=== PATIENT | male | born 1970 | race Caucasian/White ===

== ENCOUNTER → 2017-10-01 | Outpatient (REF) | payer OTHER, MEDICAID ==
[~2017-10-01] MED LIST: /CIPR75TA OR; ALLE25CA; ASP325 PO; CELEBRE200 PO; CORE6.25 OR; EFFE150C; EFFE75CA75 OR; EFFEXOR PO; EFFEXORXL1 PO; EFFEXORXL7 PO; LOPRESSO25 PO; NITR0.4S; NITROSTAT4 SL; OXYB5TAB4 OR; PLAV75TA2 OR; PLAVIX75 PO; PREDTAP PO; PRIN10TA OR; TOPI50TA; TRIC145T19 OR; XANAX PO; ZANTAC300 PO; ZOCO20TA OR; ZOCOR20 PO; ZYRTEC10 PO; [UNRECOGNIZED DRUG - CODE] PO
[2017-10-01 12:07] LABS: MEAN CORPUSCULAR HEMOGLOBIN 29.6 pg (27.0-33.0); MEAN CORPUSCULAR HGB CONC 34.8 g/dl (32.0-36.5); MEAN CORPUSCULAR VOLUME 85.3 fl (80.0-96.0); PLATELET COUNT, AUTOMATED 279 10^3/uL (150-450); RED CELL DISTRIBUTION WIDTH 12.2 % (11.5-14.5); WHITE BLOOD COUNT 5.8 10^3/uL (4.0-10.0)
[2017-10-01 13:07] LABS: FREE T4 1.07 NG/DL (0.76-1.46); URIC ACID 4.4 MG/DL (3.5-7.2)
[2017-10-03 07:21] LABS: ERYTHROCYTE SEDIMENTATION RATE 1 mm/hr (0-15)
[2017-10-04 00:08] LABS: Lyme Disease IgG/IgM Antibodie <0.91 ISR (0.00-0.90); Lyme Disease IgM Ab Quantitati <0.80 index (0.00-0.79)
== END ==
LOC: M SFHCCLAY 09:40
PROVIDERS: ATTEND Family Medicine
DX: M25.50 Pain in unspecified joint (principal)

== ENCOUNTER 2018-07-01 17:10 | Emergency (ER) | payer OTHER, MEDICAID ==
[2018-07-01 18:34] LABS: CPK CREATINE PHOSPHOKINASE 113 U/L (39-308)
== END 2018-07-01 19:14 | disposition home or self-care (01) ==
LOC: M ED 17:10
DX: T75.4XXA Electrocution, initial encounter (principal); R07.9 Chest pain, unspecified; G89.29 Other chronic pain; W86.8XXA Exposure to other electric current, initial encounter; Y92.095 Swimming-pool of other non-institutional residence as the place of occurrence of the external cause; I11.9 Hypertensive heart disease without heart failure; I25.2 Old myocardial infarction; I25.10 Atherosclerotic heart disease of native coronary artery without angina pectoris; E78.5 Hyperlipidemia, unspecified; E66.9 Obesity, unspecified; Z88.8 Allergy status to other drugs, medicaments and biological substances; Z88.6 Allergy status to analgesic agent; Z88.5 Allergy status to narcotic agent; Z88.0 Allergy status to penicillin; Z88.2 Allergy status to sulfonamides; Z79.899 Other long term (current) drug therapy
CPT/HCPCS: 93005

== ENCOUNTER 2019-04-06 15:14 | Day surgery (SDC) | payer OTHER ==
[~2019-04-06] VITALS: Ht 180.3 cm; Wt 139.9 kg
[~2019-04-06 15:14] MED LIST changes: +ATOR80TA59 PO; +NITR0.4S14 PO
[2019-04-06] MEDS ORDERED: LISI40TA PO (15:34)
[2019-04-06] MEDS ORDERED: DULO1CAP2 PO (15:34)
[2019-04-06] MEDS ORDERED: NS 1,000 ML IV ONE (16:00)
[2019-04-06] MEDS ORDERED: MORPHINE 4 MG/ML 1ML VIAL/SYRINGE (J2270) IV ONE (16:00)
[2019-04-06] MEDS ORDERED: ONDANSETRON 4MG/2ML VIAL (J2405) IV ONE (16:00)
[2019-04-06 16:10] LABS: BASO # 0.1 10^3/uL (0.0-0.2); BASO % 1.2 % (0.0-1.0); EOS # 0.1 10^3/uL (0.0-0.50); EOS % 1.2 % (0.0-3.0); HEMATOCRIT 45.1 % (42.0-52.0); HEMOGLOBIN 16.2 g/dl (13.5-17.5); LYMPH % 26.3 % (24.0-44.0); MEAN CORPUSCULAR HEMOGLOBIN 30.9 pg (27.0-33.0); MEAN CORPUSCULAR HGB CONC 35.9 g/dl (32.0-36.5); MEAN CORPUSCULAR VOLUME 86.1 fl (80.0-96.0); MONO # 0.9 10^3/uL (0.0-0.8); MONO % 11.5 % (0.0-5.0); NEUTROPHILS # 4.5 10^3/uL (1.8-7.7); NEUTROPHILS % 59.7 % (36.0-66.0); PLATELET COUNT, AUTOMATED 255 10^3/uL (150-450); RED BLOOD COUNT 5.24 10^6/uL (4.30-6.10); WHITE BLOOD COUNT 7.6 10^3/uL (4.0-10.0)
[2019-04-06 16:35] LABS: ALBUMIN 3.9 GM/DL (3.2-5.2); ALT/SGPT 48 U/L (12-78); BILIRUBIN,DIRECT 0.2 MG/DL (0.0-0.2); BILIRUBIN,TOTAL 0.5 MG/DL (0.2-1.0); BLOOD UREA NITROGEN 11 MG/DL (7-18); CALCIUM LEVEL 9.3 MG/DL (8.5-10.1); CARBON DIOXIDE LEVEL 26 MEQ/L (21-32); CHLORIDE LEVEL 109 MEQ/L (98-107); CREATININE FOR GFR 0.97 MG/DL (0.70-1.30); GLOMERULAR FILTRATION RATE > 60.0 (>60); GLUCOSE, FASTING 108 MG/DL (70-100); LIPASE 133 U/L (73-393); POTASSIUM SERUM 3.7 MEQ/L (3.5-5.1); SODIUM LEVEL 143 MEQ/L (136-145); TOTAL PROTEIN 7.1 GM/DL (6.4-8.2)
[2019-04-06] MEDS ORDERED: HYDROmorphone 2 MG TAB PO ONE (16:45)
--- NOTE | 2019-04-06 16:45 | REP ---
CT ABDOMEN AND PELVIS WITHOUT IV CONTRAST: CT abdomen and pelvis performed without oral or IV contrast. Sagittal and coronal reconstruction images are performed. Visualized lung bases demonstrate no infiltrate. The liver, spleen, adrenals and pancreas are grossly unremarkable. There is moderate right hydronephrosis caused by a 9 mm calculus in the proximal right ureter. In addition, there are three intrarenal calculi in the right renal collecting system. No left ureteral calculus or hydronephrosis is seen. There is mild atherosclerotic calcification of the abdominal aorta without aneurysm. There is no adenopathy. There is no free air or free fluid. No bowel wall thickening is seen. No pelvic mass is seen. Urinary bladder is not well distended and not well evaluated. IMPRESSION: There is a 9 mm calculus in the proximal right ureter causing moderate right hydronephrosis. There are three other subcentimeter intrarenal calculi of the right kidney. No left hydronephrosis. Electronically Signed by Aris You MD 04/08/2019 08:41 A
[2019-04-06] MEDS ORDERED: HYDROMORPHONE HCL 0.5 MG/ 0.5 ML SYRINGE (J1170 PER 1) IV ONE (17:00)
[2019-04-06] MEDS ORDERED: PLAV1TAB2 PO (17:15)
[2019-04-06] MEDS ORDERED: DULO30CA9 PO (17:15)
[2019-04-06] MEDS ORDERED: CARV6.25 PO (17:15)
[2019-04-06] MEDS ORDERED: LIDOCAINE 2% INJ 100 MG/5 ML SDV (FOR ANES.) As Ordered ONE (20:36)
[2019-04-06] MEDS ORDERED: fentaNYL 250 MCG/5 ML INJECTION (J3010) As Ordered ONE (20:36)
[2019-04-06] MEDS ORDERED: PROPOFOL 200 MG/20 ML VIAL As Ordered ONE (20:36)
[2019-04-06] MEDS ORDERED: MIDAZOLAM INJ 2 MG/2 ML VIAL (J2250) As Ordered ONE (20:36)
[2019-04-06] MEDS ORDERED: ROCURONIUM BROMIDE 50 MG/5 ML VIAL As Ordered ONE (20:41)
[2019-04-06] MEDS ORDERED: oxyBUTYnin *DITROPAN XL* 5 MG TABCR PO SCH (21:00)
[2019-04-06] MEDS ORDERED: dexameTHASONE 4 MG/ML 1ML VIAL (J1100) As Ordered ONE (21:05)
[2019-04-06] MEDS ORDERED: ePHEDrine SULFATE 25 MG/5 ML(5MG/ML) SYRINGE As Ordered ONE ×2 (21:12→22:18)
[2019-04-06] MEDS ORDERED: LevoFLOXacin(LEVAQUIN)500 MG/100 ML BAG (J1956) As Ordered ONE (21:12)
[2019-04-06] MEDS ORDERED: ONDANSETRON 4MG/2ML VIAL (J2405) As Ordered ONE (21:22)
[2019-04-06] MEDS ORDERED: PHENYLephrine HCL 500 MCG/5 ML (100MCG/ML) SYRINGE (J2370) As Ordered ONE (22:20)
[2019-04-06] MEDS ORDERED: PHENAZOPYRIDINE 100 MG TAB PO PRN (22:45)
[2019-04-06] MEDS ORDERED: ANEXSIA, NORCO 7.5MG/325MG TABLET(HYDROCODONE/APAP) PO PRN (22:45)
[2019-04-06] MEDS ORDERED: PERCOCET 5MG/325MG TAB PO PRN (23:00)
[2019-04-06] MEDS ORDERED: METOCLOPRAMIDE INJ 10MG/2ML VIAL (J2765) IV PRN (23:00)
[2019-04-06] MEDS ORDERED: ONDANSETRON 4MG/2ML VIAL (J2405) IV PRN (23:00)
[2019-04-06] MEDS ORDERED: LR 1,000 ML IV SCH (23:00)
[2019-04-06] MEDS ORDERED: fentaNYL 100 MCG/2 ML INJECTION (J3010) IV PRN (23:00)
[2019-04-06] MEDS ORDERED: DOXY100T PO (23:09)
[2019-04-06] MEDS ORDERED: PHEN-593 PO (23:09)
[2019-04-06] MEDS ORDERED: DITR5TAB PO (23:09)
[2019-04-06] MEDS ORDERED: HYDR-4514 PO (23:09)
[2019-04-07] VITALS (8 sets, daily range): BP systolic 131–167; BP diastolic 18–91
--- NOTE | 2019-04-07 05:56 | REP ---
Clinical: Stent placement. Technique: Intraoperative fluoroscopic images using portable C-arm technique. Findings: Seven images from fluoroscopic evaluation demonstrate the patient to be status post right ureteral stent placement. Total fluoroscopic time 14 seconds. Impression: Status post right ureteral stent placement. Electronically Signed by Tariq Saldivar MD 04/07/2019 05:48 A
--- NOTE | 2019-04-07 07:46 | CR ---
DATE OF CONSULTATION: 04/06/2019 REASON FOR CONSULTATION: Right proximal ureteral stone with hydroureteronephrosis and right renal stones, severe renal colic. HISTORY: A 48-year-old man with a past history of urolithiasis requiring ureteroscopic stone extraction here about 8-10 years ago presented with sudden-onset right-sided flank pain that radiated from the flank to the right testicle and was unremitting in character starting about noon today after eating some food for lunch. This was similar in character to prior stone episodes, prompting him to come immediately to the emergency room. A CT scan has been done, showing a 9 mm right mid ureteral stone with some additional small stones in the kidney. No left-sided stones noted. There is moderate hydronephrosis. Patient denies fevers or chills. He has had some nausea without vomiting. Coronary artery disease, requiring two stents in the heart in 2008, for which he takes chronic Plavix, as he is allergic to ASPIRIN. OTHER SURGERIES: 1. Left knee. 2. Left wrist. 3. Previous lithotripsy. 4. Previous ureteroscopic stone extraction. OTHER MEDICAL HISTORY: 1. Past stroke with effects on long-term memory and residual left-sided weakness. He had two strokes in 2008. 2. He does have a history of dyslipidemia. 3. Hypertension. 4. Coronary vascular disease. MEDICATIONS: Include Topamax, lamotrigine, aspirin. Patient does have a history of sleep apnea. He does not use continuous positive airway pressure (CPAP). Ears, nose, and throat (ENT) history: History of sinus infections. No current issues and no bleeding. Gastrointestinal: History is negative for hematochezia, vomiting, or constipation. He denies chronic diarrhea. Endocrine history: Negative for endocrine disorders or cold intolerance. Musculoskeletal history: Significant for a previous wrist and leg fractures requiring surgery. There is no history of blood dyscrasias or anemia. Psychosocial history: Positive for depression. Otherwise negative. Patient has been told he has an element of congestive failure. Remainder of review of systems negative. HOME MEDICATIONS: Plavix, Coreg, Tricor, nitroglycerine, atorvastatin, lisinopril, duloxetine. LABORATORY DATA: White count 7.6. Urinalysis shows 23 red cells per high-power field. Creatinine 0.97, calcium 9.3. Height 5 feet 11 inches. PHYSICAL EXAMINATION: Temperature 96.7, pulse 59, respirations 17, blood pressure 172/88. GENERAL: The patient is mildly sedated, having recently been given some parenteral narcotics. NECK: Supple. CHEST: Clear. CARDIAC: Regular rate and rhythm. ABDOMEN: Shows marked tenderness in the right flank and right lower quadrant. GENITALS: Show descended tests without masses. Phallus without lesions. Rectal exam is not done at this time. EXTREMITIES: Unremarkable. There may be 1+ edema. CT scan films were reviewed with findings a noted above. IMPRESSION: 1. Right mid ureteral stone with hydroureteronephrosis of a size unlikely to pass with poorly controlled colic. 2. Right renal stones. Comorbidities include cardiovascular disease. PLAN: Uteroscopic stone extraction of ureteral renal stones with likely lithotripsy of stones and stent placement. It is possible that this will be a multiphase procedure. As the patient is on anticoagulants, he will be best managed endoscopically. The risks of this including infection, bleeding, medication reaction, the need for additional or repeat procedures, ureteral scarring, and ureteral injury have all been discussed with the patient and his mother. They verbalized understanding and wished to proceed.
--- NOTE | 2019-04-07 07:57 | IPNPDOC ---
Subjective Review oF Systems Chief Complaint The patient is a 48-year-old male admitted with a reason for visit of R Ureteral And Renal Stone. Events since Last Encounter Feeling better this am. Ready to go home General: Reports: Normal Appetite; Denies: ROS Unobtainable, Chills, Night Sweats, Fatigue, Malaise, Other Symptoms Constitutional: Denies: Fever, Chills, Sweats, Weakness, Malaise Genitourinary: Reports: Dysuria, Frequency, Hematuria; Denies: Incontinence, Retention, Other Symptoms Objective Physical Examination General Exam: Alert, Cooperative, No Acute Distress Chest Exam: Normal air movement Heart Exam: Positive: Rate Normal Vital Signs/I&O Vital Signs Date Time Temp Pulse Resp B/P (MAP) Pulse Ox O2 Delivery O2 Flow Rate FiO2 04/07/19 06:00 98.5 89 20 131/76 (94) 98 1.0 04/06/19 19:34 Room Air I&O- Last 24 Hours up to 6 AM 04/07/19 06:00 Intake Total 2890 ml Output Total 750 ml Balance 2140 ml Laboratory Data Labs 24H Laboratory Tests 2 04/06/19 15:47: Immature Granulocyte % (Auto) 0.1, White Blood Count 7.6, Red Blood Count 5.24, Hemoglobin 16.2, Hematocrit 45.1, Mean Corpuscular Volume 86.1, Mean Corpuscular Hemoglobin 30.9, Mean Corpuscular Hemoglobin Concent 35.9, Red Cell Distribution Width 12.7, Platelet Count 255, Neutrophils (%) (Auto) 59.7, Lymphocytes (%) (Auto) 26.3, Monocytes (%) (Auto) 11.5H, Eosinophils (%) (Auto) 1.2, Basophils (%) (Auto) 1.2H, Neutrophils # (Auto) 4.5, Lymphocytes # (Auto) 2.0, Monocytes # (Auto) 0.9H, Eosinophils # (Auto) 0.1, Basophils # (Auto) 0.1, Nucleated Red Blood Cells % (auto) 0.0, Urine Color YELLOW, Urine Appearance CLEAR, Urine pH 6.0, Urine Specific [place] 1.013, Urine Protein 1+H, Urine Glucose (UA) NEGATIVE, Urine Ketones NEGATIVE, Urine Blood 1+H, Urine Nitrite NEGATIVE, Urine Bilirubin NEGATIVE, Urine Urobilinogen 2.0H, Urine Leukocyte Esterase NEGATIVE, Urine WBC (Auto) 1, Urine RBC (Auto) 23H, Urine Hyaline Casts (Auto) 0, Urine Bacteria (Auto) NEGATIVE, Urine Squamous Epithelial Cells 0, Urine Mucus (Auto) SMALL, Urine Sperm (Auto) , Anion Gap 8, Glomerular Filtration Rate > 60.0, Calcium Level 9.3, Aspartate Amino Transf (AST/SGOT) 16, Alanine Aminotransferase (ALT/SGPT) 48, Alkaline Phosphatase 85, Total Bilirubin 0.5, Direct Bilirubin 0.2, Total Protein 7.1, Albumin 3.9, Albumin/Globulin Ratio 1.22, Lipase 133 04/06/19 23:18: Bedside Glucose (Misc Panel) 151H CBC/BMP Laboratory Tests 04/06/19 15:47 Red Blood Count 5.24, Mean Corpuscular Volume 86.1, Mean Corpuscular Hemoglobin 30.9, Mean Corpuscular Hemoglobin Concent 35.9, Red Cell Distribution Width 12.7, Neutrophils (%) (Auto) 59.7, Lymphocytes (%) (Auto) 26.3, Monocytes (%) (Auto) 11.5 H, Eosinophils (%) (Auto) 1.2, Basophils (%) (Auto) 1.2 H, Neutrophils # (Auto) 4.5, Lymphocytes # (Auto) 2.0, Monocytes # (Auto) 0.9 H, Eosinophils # (Auto) 0.1, Basophils # (Auto) 0.1 FSBS Laboratory Tests Test 04/06/19 23:18 Range/Units Bedside Glucose (Misc Panel) 151 70-105 MG/DL Assessment/Plan Date Seen The patient was seen on 04/07/19. Patient Summary A: S/P R USE with stent Plan/VTE VTE Prophylaxis Ordered?: No Plan Discharge today IVF: Discontinue Diet: Continue Current Activity: Encourage Ambulation Anticipated Discharge: Home ESTRELLA VERAS MD Apr 07, 2019 07:56
--- NOTE | 2019-04-07 08:23 | RO ---
DATE OF PROCEDURE: 04/06/2019 PREOPERATIVE DIAGNOSIS: Right mid ureteral and right renal stones with hydroureteronephrosis. POSTOPERATIVE DIAGNOSIS: Right mid ureteral and right renal stones with hydroureteronephrosis. PROCEDURE: Right ureteroscopic stone extraction with laser lithotripsy and basket extraction of stones, stent placement, KUB. SURGEON: Jason Hi MD DEV OPS ENGINEER: ANESTHESIA: General. INDICATION: This 48-year-old man presented with severe right sided colic and a CT scan showed a 9 mm mid ureteral stone on the right with several small stones in the right kidney. He previously has been plagued with left sided stones that were treated a number of years ago. He had very poor pain control in the emergency room. PROCEDURE: After obtaining informed consent from the patient, he was taken to the operating room where after induction of general anesthetic, he was prepped and draped in the usual manner. The 22 Sinhala diagnostic cystoscope was advanced into the bladder, the bladder inspected. No stones or abnormalities were noted. A wire was negotiated under fluoroscopic control past the stone to the kidney under fluoroscopic control. The flexible ureteroscope was advanced over the wire without need for dilation of the ureteral orifice. The stone in the mid ureter was encountered, it was noted to be impacted. We used the 200 micron Holmium laser fiber to take this stone apart and break it into multiple pieces which were then irrigated from the ureter. A number of these pieces fell into the upper pole where further fragmentation was conducted. We inspected all calyces, saw no further stones and fragmented all visible stones to sand sized fragments. A number of the larger residual pieces were grasped with a basket and withdrawn. We made a total of three passes with ureteroscope. On inspection of the ureter, there was moderate edema at the point of previous stone impaction and for this reason we elected to leave the stent. The wire was re-passed through the scope and 6 x 28 stent positioned over the wire, the string was left attached. Unfortunately, during the takedown the stent was displaced, and we had to reprep the patient and replace the stent by passing the wire again to the kidney and repositioning a 6 x 28 stent over the wire positioning it fluoroscopically in the kidney and bladder, the string left attached. The patient was sent to the recovery in satisfactory condition. DISPOSITION: Dismissed home on [place] 7.5 one by mouth every 4 hours as needed for pain, Pyridium 200 mg three times a day as needed for dysuria, oxybutynin 10 mg daily for spasms, and doxycycline 100 mg at bedtime. Diet as tolerated. Activity light. Follow-up Friday for stent removal.
[2019-04-07] MEDS ORDERED: oxyBUTYnin *DITROPAN XL* 5 MG TABCR PO SCH (09:00)
[2019-04-07] MEDS ORDERED: DOXYCYCLINE HYCLATE 100 MG TAB PO SCH (09:00)
== END 2019-04-07 11:35 | disposition home or self-care (01) ==
LOC: M ED 15:14 → M SDC 17:40 → M MSPAV 04-07 00:30 → M SDC 04-07 11:35
PROVIDERS: ATTEND Urology
DX: N13.2 Hydronephrosis with renal and ureteral calculous obstruction (principal); I11.0 Hypertensive heart disease with heart failure; I25.10 Atherosclerotic heart disease of native coronary artery without angina pectoris; I50.9 Heart failure, unspecified; I69.998 Other sequelae following unspecified cerebrovascular disease; G47.30 Sleep apnea, unspecified; E66.9 Obesity, unspecified; Z88.0 Allergy status to penicillin; Z88.2 Allergy status to sulfonamides; Z88.6 Allergy status to analgesic agent; Z79.899 Other long term (current) drug therapy; Z79.01 Long term (current) use of anticoagulants; Z95.5 Presence of coronary angioplasty implant and graft
CPT/HCPCS: 52356; 74420; 80048; 80076; 81001; 83690; 85025; 88300; 96374; 96375; 96376; 99284; C1769; C2617; J1100; J1170; J1956; J2250; J2270; J2370; J2405; J2765; J3010

== ENCOUNTER 2019-04-14 | Emergency (ER) | payer OTHER ==
[~2019-04-14] VITALS: Ht 180.3 cm; Wt 134.1 kg
[~2019-04-14] MED LIST changes: +CARV6.25 PO; +DITR5TAB PO; +DOXY100T PO; +DULO1CAP2 PO; +DULO30CA9 PO; +HYDR-4514 PO; +LISI40TA PO; +PHEN-593 PO; +PLAV1TAB2 PO
[2019-04-14] MEDS ORDERED: ONDANSETRON 4MG/2ML VIAL (J2405) IV ONE (00:15)
[2019-04-14] MEDS ORDERED: fentaNYL 100 MCG/2 ML INJECTION (J3010) IV PRN (00:15)
--- NOTE | 2019-04-14 00:55 | REPVR ---
EXAM: CT Abdomen and Pelvis Without Contrast EXAM DATE/TIME: 04/14/2019 12:09 AM CLINICAL HISTORY: 48 years old, male; Abdominal pain; Flank; Right; Prior surgery; Surgery date: 3-7 days post-operative; Surgery type: Lithotripsy; Additional info: Right renal colic TECHNIQUE: Imaging protocol: Axial computed tomography images of the abdomen and pelvis without contrast. Coronal and sagittal reformatted images were created and reviewed. Radiation optimization: All CT scans at this facility use at least one of these dose optimization techniques: automated exposure control; mA and/or kV adjustment per patient size (includes targeted exams where dose is matched to clinical indication); or iterative reconstruction. COMPARISON: CT ABD PELVIS W/O CONTRAST 04/06/2019 4:01 PM FINDINGS: Mediastinum: Small hiatal hernia. ABDOMEN: Liver: Mild hepatomegaly. Diffuse hepatic steatosis. Gallbladder and bile ducts: No radiodense gallstones. No biliary ductal dilatation. Pancreas: Unremarkable. Spleen: Unremarkable. Adrenals: Unremarkable. Kidneys and ureters: Mild right sided hydroureteronephrosis and perinephric/periureteral edema with questionable punctate calculi at the right UVJ. Several adjacent 3 mm nonobstructing proximal right ureteral calculi. Nonobstructing right renal calculi. 2 mm calculus in the dependent urinary bladder on the right, likely recently passed. Stomach and bowel: No bowel wall thickening. No obstruction. No pneumatosis. Appendix: Normal. PELVIS: Bladder: See Kidneys And Ureters Finding. Reproductive: Unremarkable. ABDOMEN and PELVIS: Intraperitoneal space: No free fluid. No organized fluid collection. No free air. Bones/joints: No acute osseous abnormality. Osteopenia. Degenerative changes. Soft tissues: Small, fat-containing umbilical hernia. Vasculature: Mild atherosclerotic disease. No aneurysm. Lymph nodes: No pathologically enlarged lymph nodes. IMPRESSION: 1. Mild right sided hydroureteronephrosis and perinephric/periureteral edema with questionable punctate calculi at the right UVJ. 2. 2 mm calculus in the dependent urinary bladder on the right, likely recently passed. 3. Several adjacent 3 mm nonobstructing proximal right ureteral calculi. 4. Nonobstructing right renal calculi. 5. Additional findings, as above. Electronically signed by: Nicolás Somers On 04/14/2019 00:54:21 AM
[2019-04-14 01:03] LABS: APPEARANCE, URINE CLEAR (CLEAR); BACTERIA, URINE AUTO 1+ (NEGATIVE); BILIRUBIN, URINE AUTO NEGATIVE (NEGATIVE); BLOOD, URINE BLOOD 3+ (NEGATIVE); COLOR, URINE AMBER (YELLOW); GLUCOSE, URINE (UA) AUTO NEGATIVE (NEGATIVE); KETONE, URINE AUTO NEGATIVE (NEGATIVE); LEUKOCYTE ESTERASE, URINE AUTO NEGATIVE (NEGATIVE); NITRITE, URINE AUTO POSITIVE (NEGATIVE); PROTEIN, URINE AUTO NEGATIVE (NEGATIVE); RBC, URINE AUTO 4 /HPF (0-3); SPECIFIC GRAVITY URINE AUTO 1.003 (1.002-1.035); SQUAMOUS EPITHELIAL CELL UR AU 0 /HPF (0-6); WBC, URINE AUTO 1 /HPF (0-3)
[2019-04-14] MEDS ORDERED: TAMSULOSIN 0.4 MG CAP PO ONE (01:15)
[2019-04-14] MEDS ORDERED: NS 1,000 ML IV ONE (01:15)
[2019-04-14] MEDS ORDERED: ONDA4TAB6 PO (03:56)
[2019-04-14] MEDS ORDERED: NORC1TAB7 PO (03:56)
[2019-04-14] MEDS ORDERED: FLOM0.4C39 PO (03:56)
[2019-04-14] MEDS ORDERED: NORCO 5/325MG TABLET (BULK FOR ED) PO ONE (04:00)
[2019-04-14 04:03] VITALS: BP 129/62
== END 2019-04-14 04:16 | disposition home or self-care (01) ==
LOC: M ED
DX: N21.1 Calculus in urethra (principal); N13.30 Unspecified hydronephrosis; N21.0 Calculus in bladder; N20.0 Calculus of kidney; K44.9 Diaphragmatic hernia without obstruction or gangrene; K76.0 Fatty (change of) liver, not elsewhere classified; M85.80 Other specified disorders of bone density and structure, unspecified site; I10 Essential (primary) hypertension; I69.30 Unspecified sequelae of cerebral infarction; E78.5 Hyperlipidemia, unspecified; E66.9 Obesity, unspecified; Z87.442 Personal history of urinary calculi; Z79.899 Other long term (current) drug therapy; Z88.0 Allergy status to penicillin; Z88.2 Allergy status to sulfonamides; Z88.8 Allergy status to other drugs, medicaments and biological substances; Z88.5 Allergy status to narcotic agent; Z88.6 Allergy status to analgesic agent
CPT/HCPCS: 74176; 81001; 87086; 96374; 96375; 99284; J2405; J3010

== ENCOUNTER → 2019-05-31 | Outpatient (REF) | payer OTHER ==
[~2019-05-31] MED LIST changes: -DULO1CAP2 PO; +DULO1CAP5 PO; +FLOM0.4C39 PO; +NORC1TAB7 PO; +ONDA4TAB6 PO
[2019-05-31 13:52] LABS: APPEARANCE, URINE CLEAR (CLEAR); BACTERIA, URINE AUTO 1+ (NEGATIVE); BILIRUBIN, URINE AUTO NEGATIVE (NEGATIVE); BLOOD, URINE BLOOD NEGATIVE (NEGATIVE); COLOR, URINE STRAW (YELLOW); GLUCOSE, URINE (UA) AUTO NEGATIVE (NEGATIVE); KETONE, URINE AUTO NEGATIVE (NEGATIVE); LEUKOCYTE ESTERASE, URINE AUTO NEGATIVE (NEGATIVE); MUCUS, URINE SMALL (NEGATIVE); NITRITE, URINE AUTO NEGATIVE (NEGATIVE); PROTEIN, URINE AUTO NEGATIVE (NEGATIVE); RBC, URINE AUTO 0 /HPF (0-3); SPECIFIC GRAVITY URINE AUTO 1.006 (1.002-1.035); SQUAMOUS EPITHELIAL CELL UR AU 0 /HPF (0-6); UROBILINOGEN, URINE AUTO 0.2 mg/dL (0.0-2.0); WBC, URINE AUTO 1 /HPF (0-3)
== END ==
LOC: M SMT 13:31
PROVIDERS: ATTEND Nurse Practitioner Women's Health
DX: N20.0 Calculus of kidney (principal)

== ENCOUNTER → 2019-12-23 | Outpatient (REF) | payer OTHER | LOC: M LAB REF 11:18 | PROVIDERS: ATTEND Dermatology | DX: L85.9 Epidermal thickening, unspecified (principal) ==

== ENCOUNTER 2020-07-04 19:46 | Emergency (ER) | payer OTHER ==
[~2020-07-04] VITALS: Ht 182.9 cm; Wt 136.4 kg
[2020-07-04 19:57] VITALS: BP 183/97
[2020-07-04] MEDS ORDERED: METHOCARBAMOL 1,000 MG/10 ML VIAL (J2800) IV ONE (21:30)
[2020-07-04] MEDS ORDERED: KETOROLAC 30 MG/ML 1ML VIAL IV ONE (21:30)
[2020-07-05] MEDS ORDERED: OXYCODONE/APAP 5MG/325MG(BULK FOR ED) 1 TABLET PO ONE
[2020-07-05] MEDS ORDERED: NAPR-837 PO
[2020-07-05] MEDS ORDERED: ROBA750T4 PO
== END 2020-07-05 00:15 | disposition home or self-care (01) ==
LOC: M ED 19:46 → EDBD 19:46 → M ED 07-05 00:15
DX: S39.012A Strain of muscle, fascia and tendon of lower back, initial encounter (principal); X50.1XXA Overexertion from prolonged static or awkward postures, initial encounter; Y92.007 Garden or yard of unspecified non-institutional (private) residence as the place of occurrence of the external cause; Y93.H2 Activity, gardening and landscaping; I25.10 Atherosclerotic heart disease of native coronary artery without angina pectoris; E78.5 Hyperlipidemia, unspecified; I10 Essential (primary) hypertension; Z86.73 Personal history of transient ischemic attack (TIA), and cerebral infarction without residual deficits; Z88.0 Allergy status to penicillin; Z88.2 Allergy status to sulfonamides; Z88.6 Allergy status to analgesic agent; Z88.8 Allergy status to other drugs, medicaments and biological substances; Z79.899 Other long term (current) drug therapy
CPT/HCPCS: 96374; 96375; 99284; J1885; J2800

== ENCOUNTER 2020-09-24 08:50 | Inpatient (IN) | payer OTHER ==
[~2020-09-24 08:50] MED LIST changes: +NAPR-837 PO; +ROBA750T4 PO
[2020-09-24 09:19] LABS: BASO # 0.1 10^3/uL (0.0-0.2); EOS % 0.6 % (0.0-3.0); HEMATOCRIT 47.3 % (42.0-52.0); HEMOGLOBIN 16.3 g/dl (13.5-17.5); LYMPH # 1.4 10^3/uL (1.5-5.0); LYMPH % 27.1 % (24.0-44.0); MEAN CORPUSCULAR HEMOGLOBIN 29.5 pg (27.0-33.0); MEAN CORPUSCULAR HGB CONC 34.5 g/dl (32.0-36.5); MEAN CORPUSCULAR VOLUME 85.7 fl (80.0-96.0); MONO # 0.5 10^3/uL (0.0-0.8); MONO % 9.3 % (0.0-5.0); NEUTROPHILS # 3.2 10^3/uL (1.5-8.5); NEUTROPHILS % 61.8 % (36.0-66.0); PLATELET COUNT, AUTOMATED 251 10^3/uL (150-450); RED BLOOD COUNT 5.52 10^6/uL (4.30-6.10); WHITE BLOOD COUNT 5.2 10^3/uL (4.0-10.0)
[2020-09-24 09:27] LABS: INR 1.07; PROTHROMBIN TIME 14.1 SECONDS (12.5-14.3)
--- NOTE | 2020-09-24 09:33 | REP ---
INDICATION: CVA - Nursing interventions must not delay CT COMPARISON: 03/21/2015 TECHNIQUE: Axial noncontrast images from the skull base to the vertex with coronal reformations. This CT examination was performed using the following dose reduction techniques: Automated exposure control, adjustment of mA and/or kv according to the patient's size, and use of iterative reconstruction technique. FINDINGS: The ventricles, sulci, and cisterns are normal in position and appearance. You-white differentiation is maintained. No acute intracranial hemorrhage, mass/mass effect, pathology or trauma/injury. No evidence for acute infarction. No extra-axial fluid collection. Calvarium is intact. Paranasal sinuses and mastoid air cells are clear. IMPRESSION: Normal noncontrast head CT. No evidence for acute intracranial pathology or trauma/injury. <Electronically signed by Tariq Saldivar > 09/24/20 0938
--- NOTE | 2020-09-24 09:41 | REP ---
INDICATION: CVA - Nursing interventions must not delay CT. COMPARISON: None. TECHNIQUE: CT contrast dose: 100 ml of intravenous Isovue 370. Axial contrast-enhanced images were obtained from the skull base to the vertex with coronal reformations using 100 cc Isovue 370 intravenous contrast material. Maximal intensity projection and multiplanar re-formation images along with 3-D rendered imaging of the arterial vasculature. FINDINGS: The [id number] is incomplete posteriorly and visualized vertebrobasilar system demonstrates bilateral origins of the posterior cerebral arteries as well as posterior communicating arteries supplying the posterior fossa as a known congenital anatomic variant. Vasculature to the bilateral hemispheres appear symmetric. No obvious arteriovenous malformation or aneurysm detected. Remainder of the examination appears essentially normal. Incidental near complete opacification of the right maxillary sinus suggesting chronic sinusitis and mucosal. IMPRESSION: 1. No obvious arteriovenous malformation or aneurysm. 2. Vasculature to the bilateral hemispheres and posterior fossa appear symmetric. 3. 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 <Electronically signed by Tariq Saldivar > 09/24/20 0938
[2020-09-24 09:45] LABS: CK-MB VALUE MASS < 1.0 NG/ML (<3.6); CPK CREATINE PHOSPHOKINASE 65 U/L (39-308); MB/CK RELATIVE INDEX 1.54 (< OR =4); TROPONIN I < 0.02 NG/ML (< 0.10)
--- NOTE | 2020-09-24 09:45 | REP ---
INDICATION: CVA - Nursing interventions must not delay CT. COMPARISON: None. TECHNIQUE: Axial contrast-enhanced images were obtained from the thoracic inlet to the skull base with coronal and sagittal reformations using 100 cc Isovue 370 intravenous contrast material. Maximal intensity projection and multiplanar re-formation images along with 3-D rendered imaging of the arterial vasculature. This CT examination was performed using the following dose reduction techniques: Automated exposure control, adjustment of mA and/or kv according to the patient's size, and the use of iterative reconstruction technique. FINDINGS: The common carotid arteries, carotid bulbs and visualized portions of the external and the internal carotid arteries are normal. The vertebral arteries are patent bilaterally and relatively symmetric. There are no atherosclerotic lesions, areas of significant stenosis or occlusion identified. No obvious vascular abnormality noted. IMPRESSION: Normal CT angiography of the neck <Electronically signed by Tariq Saldivar > 09/24/20 0941
--- NOTE | 2020-09-24 09:45 | REP ---
INDICATION: CVA COMPARISON: 06/27/2015 TECHNIQUE: Portable AP view of the chest FINDINGS: The mediastinum and cardiac silhouette are stable and within normal limits for portable technique. The lung eng are clear without acute consolidation, effusion, or pneumothorax. Skeletal structures are intact. IMPRESSION: No acute cardiopulmonary process appreciated. <Electronically signed by Tariq Saldivar > 09/24/20 0944
[2020-09-24] MEDS ORDERED: NITROGLYCERIN 0.4 MG SUBL TABLET SL PRN (10:30)
[2020-09-24] MEDS ORDERED: ACETAMINOPHEN TAB 650MG DOSE (2X325MG) PO PRN (10:30)
[2020-09-24] MEDS: ENOXAPARIN 40MG/0.4ML SYRINGE (J1650 PER 10MG) SC SCH (10:50)
[2020-09-24 13:00] VITALS: BP 180/98
--- NOTE | 2020-09-24 13:00 | REP ---
INDICATION: Left sided weakness COMPARISON: 01/23/2009 TECHNIQUE: You scale and color Doppler evaluation using linear high frequency transducer Findings: FINDINGS: Two-dimensional you scale and color images demonstrate minimal mixed atheromatous plaquing with normal laminar flow and no appreciable narrowing. Color Doppler interrogation demonstrates normal arterial wave patterns and velocities with no significant spectral broadening. Normal flow direction is appreciated in the bilateral vertebral arteries. ICA peak systolic velocity: Right 62.4 cm/s; Left 64.6 cm/s ICA diastolic velocity: Right 20.8 cm/s; Left 20.9 cm/s ECA peak systolic velocity: Right 89.5 cm/s; Left 67.5 cm/s CCA peak systolic velocity: Right 77.4 cm/s; Left 91.8 cm/s ICA/CCA ratio: Right 0.81 cm/s; Left 0.70 cm/s IMPRESSION: No hemodynamically significant areas of narrowing or stenosis appreciated. Based on set standards narrowing falls within the normal/less than 50% range. <Electronically signed by Tariq Saldivar > 09/24/20 2232
--- NOTE | 2020-09-24 13:16 | REPVR ---
PROCEDURE INFORMATION: Exam: MR Head Without Contrast Exam date and time: 09/24/2020 12:08 PM Age: 49 years old Clinical indication: Weakness, extremity; Left; Additional info: Left sided weakness TECHNIQUE: Imaging protocol: MR of the head without contrast. COMPARISON: CT Head without contrast 09/24/2020 9:11 AM FINDINGS: Brain: Normal. No acute infarct. No hemorrhage. No significant white matter disease. No edema. Cerebral ventricles: Normal. No ventriculomegaly. Bones/joints: Unremarkable. Paranasal sinuses: Normal as visualized. No acute sinusitis. Mastoid air cells: Normal as visualized. No mastoid effusion. Orbits: Unremarkable. Soft tissues: Unremarkable. IMPRESSION: No acute findings. No acute infarct is identified. Electronically signed by: Bib Ramírez On 09/24/2020 13:16:27 PM
--- NOTE | 2020-09-24 13:18 | REPVR ---
PROCEDURE INFORMATION: Exam: MR Angiogram Head Without Contrast, Arteries Exam date and time: 09/24/2020 12:07 PM Age: 49 years old Clinical indication: Weakness; Additional info: Left sided weakness TECHNIQUE: Imaging protocol: MR angiogram head without contrast. Exam focused on the arteries. 3D rendering (Not supervised by radiologist): MIP and/or 3D reconstructed images were created by the technologist. COMPARISON: CT ANGIO HEAD 09/24/2020 9:11 AM FINDINGS: ANTERIOR CIRCULATION: Right internal carotid artery: Intracranial segment is patent with no significant stenosis. No aneurysm. Right middle cerebral artery: No occlusion or significant stenosis. No aneurysm. Right anterior cerebral artery: No occlusion or significant stenosis. No aneurysm. Left internal carotid artery: Intracranial segment is patent with no significant stenosis. No aneurysm. Left middle cerebral artery: No occlusion or significant stenosis. No aneurysm. Left anterior cerebral artery: No occlusion or significant stenosis. No aneurysm. POSTERIOR CIRCULATION: Right vertebral artery: The patient is right vertebral artery dominant. Left vertebral artery: No occlusion or significant stenosis. No aneurysm. Basilar artery: No occlusion or significant stenosis. No aneurysm. Right posterior cerebral artery: There is a origin of the right posterior cerebral artery. Left posterior cerebral artery: No occlusion or significant stenosis. No aneurysm. IMPRESSION: No stenosis or occlusion. Electronically signed by: Bib Ramírez On 09/24/2020 13:18:22 PM
--- NOTE | 2020-09-24 13:28 | HPEPDOC ---
[facility] Medical History & Physical Date of Admission Sep 24, 2020 Date of Service: Sep 24, 2020 History and Physical Chief complaint: Presented to the ER with left-sided weakness and facial droop History of present illness: Patient is a 49-year-old male with PMHx of Chronic CVA x2 (2008; w/ residual left sided weakness /numbness), CAD s/p stent, HTN, DLP, TOM on CPAP, D epression, Arthritis, Hx of Kidney stones, Chronic fatigue, who presented to the ER after waking up with left-sided weakness. Patient reports he went to bed at 10 PM and woke up at 7:30 AM and reported that his left side felt heavy and unmovable. Patient reported left eye wateriness and reduced vision from his left. Patient was outside of the window to receive TPA case was discussed by ER provider and Neurology. He denies any chest pain, shortness of breath, palpitations, nausea, vomiting, abdominal pain, diarrhea, constipation, or urinary discomfort. Patient denies any fevers but does report chills. Patient will be admitted to the hospital service for further evaluation and treatment. Past Medical History: Chronic CVA x2 (2008; w/ residual left sided weakness /numbness), CAD s/p stent, HTN, DLP, TOM on CPAP, Depression, Arthritis, Hx of Kidney stones, Chronic fatigue Past Surgical History: LT [employer] LT WRIST FX [employer] RIGHT FOOT [employer] CARDIAC CATH & RCA STENT PLACEMENT - [place] 2008 S/P LEFT URETEROSCOPY 11/2010 CARDIAC CATHETERIZATION 2011 CARDIAC CATH [facility] - LVEF 55-60%, WIDELY PAPTENT STENT; DR. WALTON 2014 RIGHT SHOCKWAVE LITHOTRIPSY 11/25/13 KIDNEY STONE REMOVAL 04/06/2019 CARDIAC CATHETERIZATION 07/29/19 Allergies: See below Medications: See below Family History: - No history of malignancies Social History: - Denies the use of tobacco or illicit drugs; seldom uses - Denies recent travel or sick contacts - Lives with mother - Occupation; disability Review of Systems: 10 point review of systems complete, all negative otherwise stated in HPI Physical exam: - Vitals: BP [142/70], HR [62], RR [18], Sat [98%RA], Temp [98.4F] - General: Lying in bed, No acute distress, Speaking in full sentences, Awake / Alert, Oriented to person / place, not to time - HEENT: NC, AT, PERRLA, EOMI - CVS: RRR, +S1S2 - Lungs: Fair air entry bilaterally, No appreciable wheezing / rales / rhonchi - Abdomen: Soft, Non-distended, Non-tender - Extremities: No lower extremity edema, No calf tenderness - Neuro: 2-3/5 strength at LUE and LLE, 5/5 strength at RUE/RLE, sensation appears symmetric bilaterally, Left sided facial droop noted - Skin: No visible rashes Labs: See below Imaging: CT head 09/24: Normal noncontrast head CT. No evidence for acute intracranial pa thology or trauma/injury. CTA Head 09/24: 1. No obvious arteriovenous malformation or aneurysm. 2. Vasculature to the bilateral hemispheres and posterior fossa appear symmetric. 3. 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 CTA Neck 09/24: Normal CT angiography of the neck Duplex Carotid 09/24: No hemodynamically significant areas of narrowing or stenosis appreciated. Based on set standards narrowing falls within the normal/less than 50% range. EKG: See below Assessment and Plan: Acute CVA - Presented to the ER with left-sided weakness and left facial droop - History of 2 prior CVAs in 2008 - Imaging noted above - Will check ECHO / Duplex Carotid / Lipid profile - Discussed with Neurology, who will be on consultation; will c/w Plavix and Statin for now Chronic CVA x2 - 2008; w/ residual left sided weakness /numbness - c/w Atorvastatin and Plavix CAD s/p stent - c/w Nitroglycerin PRN - c/w Atorvastatin and Plavix HTN - Will allow for permissive hypertension up in 140 and 160 - Will hold Carvedilol - c/w Lisinopril alone for now with modified hold parameters DLP - c/w Atorvastatin TOM on CPAP - Allow home use of CPAP while inpatient Depression - c/w Duloxetine Arthritis Hx of Kidney stones Chronic fatigue DVT prophylaxis - Will start Lovenox Vital Signs Vital Signs Date Time Temp Pulse Resp B/P (MAP) Pulse Ox O2 Delivery O2 Flow Rate FiO2 09/24/20 11:30 98.4 62 18 142/70 (94) 98 Room Air Laboratory Data Labs 24H Laboratory Tests 2 09/24/20 08:55: Immature Granulocyte % (Auto) 0.2, Neutrophils (%) (Auto) 61.8, Lymphocytes (%) (Auto) 27.1, Monocytes (%) (Auto) 9.3H, Eosinophils (%) (Auto) 0.6, Basophils (%) (Auto) 1.0, Neutrophils # (Auto) 3.2, Lymphocytes # (Auto) 1.4L, Monocytes # (Auto) 0.5, Eosinophils # (Auto) 0.0, Basophils # (Auto) 0.1, Nucleated Red Blood Cells % (auto) 0.0, Prothrombin Time 14.1H, Prothromb Time International Ratio 1.07, Activated Partial Thromboplast Time 32.0, Total Creatine Kinase 65, Creatine Kinase MB < 1.0, Creatine Kinase MB Relative Index 1.54, Troponin I < 0.02 09/24/20 09:44: Coronavirus (COVID-19)(PCR) NEGATIVE CBC/BMP Laboratory Tests 09/24/20 08:55 Home Medications Scheduled Atorvastatin Calcium (Atorvastatin Calcium) 80 Mg Tab, 80 MG PO QHS Carvedilol (Carvedilol) 6.25 Mg Tablet, 6.25 MG PO BID Clopidogrel Bisulfate (Plavix) 75 Mg Tablet, 75 MG PO DAILY Duloxetine Hcl (Duloxetine HCl) 30 Mg Capsule.dr, 30 MG PO DAILY Lisinopril (Lisinopril) 40 Mg Tablet, 40 MG PO QHS Scheduled PRN Nitroglycerin (Nitroglycerin) 0.4 Mg Sub, 0.4 MG PO NITRO PRN for CHEST PAIN Allergies Coded Allergies: aspirin (Verified Allergy, Unknown, 09/24/20) codeine (Verified Allergy, Unknown, hives, 09/24/20) hives lamotrigine (Verified Allergy, Unknown, 09/24/20) topiramate (Verified Allergy, Unknown, 09/24/20) Penicillins (Verified Adverse Reaction, Unknown, hives, 09/24/20) Sulfa (Sulfonamide Antibiotics) (Verified Adverse Reaction, Unknown, hives, 09/24/20) allopurinol (Verified Adverse Reaction, Unknown, hives, 09/24/20) escitalopram (Verified Adverse Reaction, Unknown, dizzy, nausea, 09/24/20) ibuprofen (Verified Adverse Reaction, Unknown, increased BP, 09/24/20) CY BUCIO MD Sep 24, 2020 13:28
[2020-09-24] MEDS: lisinopriL 40 MG TAB PO SCH (15:06)
[2020-09-24 16:00] VITALS: BP 148/82
--- NOTE | 2020-09-24 18:59 | ECGEPIP ---
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
[2020-09-24 20:00] VITALS: BP 130/91
[2020-09-24] MEDS: ATORVASTATIN 20 MG TAB PO SCH (20:23)
[2020-09-24] MEDS: DIVALPROEX 250 MG TAB PO SCH (20:23)
[2020-09-25] VITALS: BP 146/75
[2020-09-25 04:00] VITALS: BP 136/78
[2020-09-25 05:45] LABS: BASO # 0.1 10^3/uL (0.0-0.2); BASO % 0.8 % (0.0-1.0); EOS # 0.1 10^3/uL (0.0-0.5); EOS % 1.4 % (0.0-3.0); HEMATOCRIT 46.3 % (42.0-52.0); HEMOGLOBIN 16.1 g/dl (13.5-17.5); LYMPH # 2.6 10^3/uL (1.5-5.0); LYMPH % 39.1 % (24.0-44.0); MEAN CORPUSCULAR HEMOGLOBIN 30.4 pg (27.0-33.0); MEAN CORPUSCULAR HGB CONC 34.8 g/dl (32.0-36.5); MEAN CORPUSCULAR VOLUME 87.4 fl (80.0-96.0); MONO # 0.7 10^3/uL (0.0-0.8); MONO % 10.9 % (0.0-5.0); NEUTROPHILS # 3.1 10^3/uL (1.5-8.5); NEUTROPHILS % 47.6 % (36.0-66.0); PLATELET COUNT, AUTOMATED 226 10^3/uL (150-450); WHITE BLOOD COUNT 6.6 10^3/uL (4.0-10.0)
[2020-09-25 05:49] LABS: BLOOD UREA NITROGEN 17 MG/DL (7-18); CALCIUM LEVEL 8.9 MG/DL (8.5-10.1); CARBON DIOXIDE LEVEL 31 MEQ/L (21-32); CHLORIDE LEVEL 107 MEQ/L (98-107); CHOLESTEROL LEVEL 143 MG/DL (<200); CHOLESTEROL RISK RATIO 3.763 (<5); CREATININE FOR GFR 0.98 MG/DL (0.70-1.30); GLOMERULAR FILTRATION RATE > 60.0 (>60); GLUCOSE, FASTING 92 MG/DL (70-100); HDL CHOLESTEROL 38 MG/DL (>40); LDL CHOLESTEROL 79 MG/DL (<100); MAGNESIUM LEVEL 2.3 MG/DL (1.8-2.4); NON-HDL-C 105 MG/DL; POTASSIUM SERUM 3.8 MEQ/L (3.5-5.1); SODIUM LEVEL 142 MEQ/L (136-145); TRIGLYCERIDES LEVEL 131 MG/DL (<150)
[2020-09-25 08:00] VITALS: BP 142/80
[2020-09-25] MEDS: CLOPIDOGREL 75 MG TAB PO SCH (08:45)
[2020-09-25] MEDS: DULoxetine 30 MG CAP (CYMBALTA) PO SCH (08:45)
[2020-09-25] MEDS: ENOXAPARIN 40MG/0.4ML SYRINGE (J1650 PER 10MG) SC SCH (08:45)
[2020-09-25] MEDS: DIVALPROEX 250 MG TAB PO SCH ×2 (08:46→21:58)
--- NOTE | 2020-09-25 10:55 | IPNPDOC ---
Text Note Date of Service The patient was seen on 09/25/20. NOTE Subjective: Patient is a 49-year-old male with PMHx of Chronic CVA x2 (2008; w/ residual left sided weakness /numbness), CAD s/p stent, HTN, DLP, TOM on CPAP, Depression, Arthritis, Hx of Kidney stones, Chronic fatigue, who presented to the ER after waking up with left-sided weakness. . She was admitted to hospital service for further evaluation and treatment. Neurology was called on consultation. Patient was seen and examined at the bedside. Currently patient denies any nausea, vomiting, chest pain, shortness of breath, abdominal pain, diarrhea, or urinary discomfort. Patient has been working with physical therapy, however, has not yet cleared, Objective: Vitals (See below) General: Lying in bed, appears to be comfortable, Awake / Alert HEENT: NC, AT CVS: RRR, +S1S2 Lungs: Fair air entry b/l, -w/r/r Abdomen: Soft, nondistended and nontender Extremities: No evidence of edema, - Calf tenderness Imaging: CT head 09/24: Normal noncontrast head CT. No evidence for acute intracranial pa thology or trauma/injury. CTA Head 09/24: 1. No obvious arteriovenous malformation or aneurysm. 2. Vasculature to the bilateral hemispheres and posterior fossa appear symmetric. 3. 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 CTA Neck 09/24: Normal CT angiography of the neck Duplex Carotid 09/24: No hemodynamically significant areas of narrowing or stenosis appreciated. Based on set standards narrowing falls within the normal/less than 50% range. MRI Brain 09/24: No acute findings. No acute infarct is identified. MRA Brain 09/24: No stenosis or occlusion. Assessment and plan: Weakness of the left arm and left leg / left facial weakness - likely 2/2 complicated migraine, unlikely 2/2 acute CVA - Presented to the ER with left-sided weakness and left facial droop - History of 2 prior CVAs in 2008 - Imaging noted above - Neurology on consultation; likely 2/2 complicated migraine - c/w Depakote; will need LFT follow up in 1 month - c/w PT and OT Chronic CVA x2 - 2008; w/ residual left sided weakness /numbness - c/w Atorvastatin and Plavix CAD s/p stent - c/w Nitroglycerin PRN - c/w Atorvastatin and Plavix HTN - Will allow for permissive hypertension up in 140 and 160 - Will hold Carvedilol - c/w Lisinopril alone for now with modified hold parameters DLP - c/w Atorvastatin TOM on CPAP - Allow home use of CPAP while inpatient Depression - c/w Duloxetine Arthritis Hx of Kidney stones Chronic fatigue DVT prophylaxis - c/w Lovenox Disposition: - c/w PT and OT; awaiting clearance VS,Elaina, I+O VS, Elaina, I+O Laboratory Tests 09/25/20 05:08 Vital Signs Date Time Temp Pulse Resp B/P (MAP) Pulse Ox O2 Delivery O2 Flow Rate FiO2 09/25/20 08:00 97.8 58 18 142/80 (100) 97 Room Air I&O- Last 24 Hours up to 6 AM 09/25/20 06:00 Intake Total 300 ml Output Total 600 ml Balance -300 ml CY BUCIO MD Sep 25, 2020 10:55
[2020-09-25 12:00] VITALS: BP 158/96
[2020-09-25 15:29] VITALS: BP 157/77
[2020-09-25 20:00] VITALS: BP 148/92
[2020-09-25] MEDS: lisinopriL 40 MG TAB PO SCH (21:58)
[2020-09-25] MEDS: ATORVASTATIN 20 MG TAB PO SCH (21:58)
[2020-09-26] VITALS: BP 142/88
[2020-09-26 04:00] VITALS: BP 143/86
[2020-09-26 05:33] LABS: BASO # 0.1 10^3/uL (0.0-0.2); BASO % 0.9 % (0.0-1.0); EOS # 0.1 10^3/uL (0.0-0.5); EOS % 1.2 % (0.0-3.0); HEMATOCRIT 45.5 % (42.0-52.0); LYMPH # 2.9 10^3/uL (1.5-5.0); LYMPH % 36.7 % (24.0-44.0); MEAN CORPUSCULAR HEMOGLOBIN 30.5 pg (27.0-33.0); MEAN CORPUSCULAR HGB CONC 35.2 g/dl (32.0-36.5); MEAN CORPUSCULAR VOLUME 86.8 fl (80.0-96.0); MONO # 0.9 10^3/uL (0.0-0.8); MONO % 11.1 % (0.0-5.0); NEUTROPHILS # 3.9 10^3/uL (1.5-8.5); PLATELET COUNT, AUTOMATED 234 10^3/uL (150-450); RED BLOOD COUNT 5.24 10^6/uL (4.30-6.10); WHITE BLOOD COUNT 7.8 10^3/uL (4.0-10.0)
[2020-09-26 05:58] LABS: BLOOD UREA NITROGEN 15 MG/DL (7-18); CALCIUM LEVEL 9.1 MG/DL (8.5-10.1); CARBON DIOXIDE LEVEL 31 MEQ/L (21-32); CHLORIDE LEVEL 105 MEQ/L (98-107); CREATININE FOR GFR 1.07 MG/DL (0.70-1.30); GLOMERULAR FILTRATION RATE > 60.0 (>60); GLUCOSE, FASTING 92 MG/DL (70-100); MAGNESIUM LEVEL 2.1 MG/DL (1.8-2.4); POTASSIUM SERUM 3.5 MEQ/L (3.5-5.1); SODIUM LEVEL 141 MEQ/L (136-145)
[2020-09-26 07:28] VITALS: BP 134/85
[2020-09-26] MEDS: ENOXAPARIN 40MG/0.4ML SYRINGE (J1650 PER 10MG) SC SCH (08:11)
[2020-09-26] MEDS ORDERED: DEPA250T32 PO (08:20)
[2020-09-26] MEDS: CLOPIDOGREL 75 MG TAB PO SCH (08:58)
[2020-09-26] MEDS: DIVALPROEX 250 MG TAB PO SCH (08:58)
[2020-09-26] MEDS: DULoxetine 30 MG CAP (CYMBALTA) PO SCH (08:58)
--- NOTE | 2020-09-26 11:59 | DS.PDOC ---
Discharge Summary General Date of Admission Sep 24, 2020 at 10:20 Date of Discharge 09/26/2020 Discharge Summary PROCEDURES PERFORMED DURING STAY: [None]. ADMITTING DIAGNOSES / DISCHARGE DIAGNOSES: Weakness of the left arm and left leg / left facial weakness - likely 2/2 complicated migraine, unlikely 2/2 acute CVA Chronic CVA x2 CAD s/p stent HTN DLP TOM on CPAP Depression Arthritis Hx of Kidney stones Chronic fatigue DVT prophylaxis COMPLICATIONS/CHIEF COMPLAINT: Left sided weakness HISTORY OF PRESENT ILLNESS: Patient is a 49-year-old male with PMHx of Chronic CVA x2 (2008; w/ residual left sided weakness /numbness), CAD s/p stent, HTN, DLP, TOM on CPAP, Depression, Arthritis, Hx of Kidney stones, Chronic fatigue, who presented to the ER after waking up with left-sided weakness. . She was admitted to hospital service for further evaluation and treatment. Neurology was called on consultation. HOSPITAL COURSE: Weakness of the left arm and left leg / left facial weakness - likely 2/2 complicated migraine, unlikely 2/2 acute CVA - Presented to the ER with left-sided weakness and left facial droop; currently has full resolution of symptoms and is now back to baseline - History of 2 prior CVAs in 2008 - Imaging noted above - Neurology on consultation; likely 2/2 complicated migraine - c/w Depakote; will need LFT follow up in 1 month - c/w PT and OT - has been cleared for DC home Chronic CVA x2 - 2008; w/ residual left sided hemiparesis / numbness - c/w Atorvastatin and Plavix CAD s/p stent - c/w Nitroglycerin PRN - c/w Atorvastatin and Plavix HTN - BP well controlled - c/w Lisinopril and Carvedilol based on home regimen DLP - c/w Atorvastatin TOM on CPAP - Allow home use of CPAP while inpatient Depression - c/w Duloxetine Arthritis Hx of Kidney stones Chronic fatigue DVT prophylaxis - c/w Lovenox DISCHARGE MEDICATIONS: Please see below. ALLERGIES: Please see below. PHYSICAL EXAMINATION ON DISCHARGE: Vitals (See below) General: Sitting up in bed, appears to be comfortable, awake, alert, oriented to person, place and time HEENT: NC, AT CVS: +S1S2 Lungs: There appears to be fair air entry bilaterally without any evidence of rhonchi, crackles or wheezing Abdomen: Abdomen remains soft without any distention or tenderness Extremities: Lower extremities were without any edema, - Calf tenderness LABORATORY DATA: Please see below. IMAGING: CT head 09/24: Normal noncontrast head CT. No evidence for acute intracranial pathology or trauma/injury. CTA Head 09/24: 1. No obvious arteriovenous malformation or aneurysm. 2. Vasculature to the bilateral hemispheres and posterior fossa appear symmetric. 3. Known congenital variant to the gcriec-bz-Ocveyp and posterior cerebral arteries as previously identified on MRA dated 02/10/2009. CTA Neck 09/24: Normal CT angiography of the neck Duplex Carotid 09/24: No hemodynamically significant areas of narrowing or stenosis appreciated. Based on set standards narrowing falls within the normal/less than 50% range. MRI Brain 09/24: No acute findings. No acute infarct is identified. MRA Brain 09/24: No stenosis or occlusion. ACTIVITY: [As tolerated]. DISCHARGE PLAN: Follow up with PCP and neurology within the next 7 days Remain compliant with treatment plan and medications Return to the ER if you experience any problems DISPOSITION: Home, Self-Care. DISCHARGE CONDITION: [Stable]. TIME SPENT ON DISCHARGE: 35 minutes. Vital Signs/I&Os Vital Signs Date Time Temp Pulse Resp B/P (MAP) Pulse Ox O2 Delivery O2 Flow Rate FiO2 09/26/20 07:28 97.4 67 18 134/85 (101) 96 Room Air I&O- Last 24 Hours up to 6 AM 09/26/20 06:00 Intake Total 536 ml Output Total 0 ml Balance 536 ml Laboratory Data Labs 24H Laboratory Tests 2 09/26/20 05:17: Immature Granulocyte % (Auto) 0.1, Neutrophils (%) (Auto) 50.0, Lymphocytes (%) (Auto) 36.7, Monocytes (%) (Auto) 11.1H, Eosinophils (%) (Auto) 1.2, Basophils (%) (Auto) 0.9, Neutrophils # (Auto) 3.9, Lymphocytes # (Auto) 2.9, Monocytes # (Auto) 0.9H, Eosinophils # (Auto) 0.1, Basophils # (Auto) 0.1, Nucleated Red Blood Cells % (auto) 0.0, Anion Gap 5L, Glomerular Filtration Rate > 60.0, Calcium Level 9.1, Magnesium Level 2.1 CBC/BMP Laboratory Tests 09/26/20 05:17 Discharge Medications Scheduled Atorvastatin Calcium (Atorvastatin Calcium) 80 Mg Tab, 80 MG PO QHS, (Reported) Carvedilol (Carvedilol) 6.25 Mg Tablet, 6.25 MG PO BID, (Reported) Clopidogrel Bisulfate (Plavix) 75 Mg Tablet, 75 MG PO DAILY, (Reported) Divalproex Sodium (Depakote) 250 Mg Tablet.dr, 250 MG PO BID Duloxetine Hcl (Duloxetine HCl) 30 Mg Capsule.dr, 30 MG PO DAILY, (Reported) Lisinopril (Lisinopril) 40 Mg Tablet, 40 MG PO QHS, (Reported) Scheduled PRN Nitroglycerin (Nitroglycerin) 0.4 Mg Sub, 0.4 MG PO NITRO PRN for CHEST PAIN, (Reported) Allergies Coded Allergies: aspirin (Verified Allergy, Unknown, 09/24/20) codeine (Verified Allergy, Unknown, hives, 09/24/20) hives lamotrigine (Verified Allergy, Unknown, 09/24/20) topiramate (Verified Allergy, Unknown, 09/24/20) Penicillins (Verified Adverse Reaction, Unknown, hives, 09/24/20) Sulfa (Sulfonamide Antibiotics) (Verified Adverse Reaction, Unknown, hives, 09/24/20) allopurinol (Verified Adverse Reaction, Unknown, hives, 09/24/20) escitalopram (Verified Adverse Reaction, Unknown, dizzy, nausea, 09/24/20) ibuprofen (Verified Adverse Reaction, Unknown, increased BP, 09/24/20) CY BUCIO MD Sep 26, 2020 11:58
--- NOTE | 2020-09-26 12:25 | ECHO ---
DATE OF PROCEDURE: 09/25/2020 Age: 49 Gender: Male Height: 180 cm Weight: 134 kg REFERRING PHYSICIAN: Ziggy Hendrix M.D. INDICATION: Acute stroke. MEASUREMENTS: 2D Measurements: Intraventricular septum 0.82 cm Posterior wall 1.01 cm Left ventricle diastole 5.4 cm Aortic root 3.3 cm Left atrium 4.2 cm Left atrial volume index 27 cm Inferior vena cava 1.5 cm Doppler Measurements: Very mild aortic regurgitation No aortic stenosis Aortic valve velocity 126 cm/s LVOT velocity 133 cm/s No mitral stenosis No mitral regurgitation Mitral E velocity 46.5 cm/s Mitral A velocity 74.9 cm/s Mitral deceleration time 182 msec Trace tricuspid regurgitation No pulmonic regurgitation Pulmonary acceleration time 127 msec MITRAL ANNULAR TISSUE DOPPLER E prime septal 6.64 cm/s, E prime lateral 6.85 cm/s DESCRIPTION: Rhythm was sinus. This was a moderately technically difficult echocardiogram. This was a 2D, M-mode, color flow Doppler, and pulsed wave Doppler examination including a saline bubble study. No pericardial effusion. CONCLUSIONS: 1. Normal left ventricle internal dimensions and wall thickness. Normal regional left ventricular (LV) wall motion and wall thickening. Normal left ventricular (LV) systolic function. Left ventricular ejection fraction (LVEF) 60% to 65% by visual estimate. Grade 1 left ventricular (LV) diastolic dysfunction (impaired relaxation filling pattern). 2. Saline bubble study negative for detection of [id number] intracardiac shunting. 3. Very mild aortic regurgitation of a 3-cuspid aortic valve. Moderately technically difficult visualization of the aortic valve. The aortic regurgitation could possibly be within normal limits. 4. Moderately technically difficult echocardiogram. 5. Otherwise normal appearing echocardiogram Doppler findings. [facility]
--- NOTE | 2020-10-02 15:55 | CR ---
NEUROLOGY CONSULTATION DATE: 09/24/2020 REFERRING PROVIDER: Ziggy Hendrix MD. REASON FOR CONSULTATION: Suspected stroke versus complex migraine. HISTORY OF PRESENT ILLNESS: The patient is a 49-year-old male with a past medical history of self reported stroke occurring in 2008 with residual left sided weakness without MRI evidence of stroke diagnosed by Dr. Nikki Vivar in [place], [place], history of coronary artery disease status post stent, hypertension, hyperlipidemia, obstructive sleep apnea on CPAP presenting with the chief complaint of waking up with left sided weakness. The patient had visual defect of the left eye he states. His NIH Stroke Scale was reported by ER to be 13. As he woke up with the symptoms he was not a candidate for tPA. MRI of the brain confirmed the patient was not having a stroke despite showing evidence of all this weakness. Patient's physical exam was inconsistent with stroke with giveaway weakness including giveaway weakness on the right side. The patient may have functional neurological exam. Patient describes a dull pressure sensation over his head, cannot entirely exclude complex migraine. The patient denies any diplopia, dysarthria, dysphagia, facial weakness or numbness at this time. He states he has to put a lot of effort in moving his left arm and left leg. REVIEW OF SYSTEMS: A 14 point review of systems obtained and was negative except as per HPI. PAST SURGICAL HISTORY: 1. Left knee. 2. Left wrist. 3. Right foot. 4. Cardiac catheterization in 2011. 5. Cardiac catheterization in 2014. 6. Cardiac catheterization July,. 7. RCA stent placement in 2008. 8. Left ureteroscopy. 9. Lithotripsy 2013. 10. Kidney stone removal 2018. ALLERGIES: 1. PENICILLIN. 2. SULFA. 3. ALLOPURINOL. 4. ASPIRIN. 5. CODEINE. 6. ESCITALOPRAM. 7. IBUPROFEN. 8. LAMICTAL. 9. TOPIRAMATE. SOCIAL HISTORY: Patient denies use of any tobacco, alcohol or illicit drugs. FAMILY HISTORY: Noncontributory. PHYSICAL EXAMINATION: Blood pressure 142/70, pulse rate 62, respiratory rate 18, temperature 98.4 degrees Fahrenheit, oxygenation 98% on room air. Patient is oriented to person, place and time. Speech and language comprehension, repetition are intact. Pupils appear 3 mm and normal, extraocular movements are intact. There is no facial weakness. Tongue is midline. There is no slurred speech. Patient does not have any pronator drift. The patient has giveaway weakness in testing his left arm and left leg. In simultaneous testing of bilateral upper extremities he demonstrates giveaway weakness on the right side suggesting functional neurological exam. Patient has normal intact sensation to light touch in all 4 extremities. Deep tendon reflexes are 2+ throughout. Babinski signs are absent. Coordination without any ataxia on finger to nose. IMAGING: CT head September 24 normal. CTA angiogram head and neck normal without any evidence of stenosis. Carotid ultrasound negative, less than 50% stenosis. MRI brain negative for any acute stroke. ASSESSMENT: No evidence of acute stroke to support NIH Stroke Scale of 13 with diffuse weakness on left side thought to be secondary to possible complex migraine versus functional neurological exam. PLAN: 1. Continue atorvastatin 80 mg. 2. Continue Plavix 75 mg daily. 3. Patient can follow up in the [facility] as an outpatient for management of possible migraines. 4. Recommend a PT/OT eval.
== END 2020-09-26 11:19 | disposition home or self-care (01) | DRG 54 ==
LOC: EDBD 08:50 → M ED 08:50 → M ED INP 10:20 → M PCU 13:10
PROVIDERS: ADMIT Internal Medicine; ATTEND Internal Medicine
DX: G43.109 Migraine with aura, not intractable, without status migrainosus (principal); I69.354 Hemiplegia and hemiparesis following cerebral infarction affecting left non-dominant side; I10 Essential (primary) hypertension; G47.33 Obstructive sleep apnea (adult) (pediatric); R53.83 Other fatigue; F32.9 Major depressive disorder, single episode, unspecified; M19.90 Unspecified osteoarthritis, unspecified site; Z95.2 Presence of prosthetic heart valve; I25.10 Atherosclerotic heart disease of native coronary artery without angina pectoris; Z87.442 Personal history of urinary calculi; Z79.899 Other long term (current) drug therapy; Z88.0 Allergy status to penicillin; Z88.6 Allergy status to analgesic agent; Z88.8 Allergy status to other drugs, medicaments and biological substances; Z88.2 Allergy status to sulfonamides

== ENCOUNTER 2021-03-25 10:31 | Emergency (ER) | payer OTHER ==
[~2021-03-25] VITALS: Ht 177.8 cm; Wt 134.8 kg
[~2021-03-25 10:31] MED LIST changes: +DEPA250T32 PO; -LISI40TA PO; +LISI40TA4 PO; -PHEN-593 PO; +PHEN1TAB73 PO
[2021-03-25] MEDS ORDERED: BACI500O21 TOP (11:55)
[2021-03-25 12:11] VITALS: BP 165/98
== END 2021-03-25 12:12 | disposition home or self-care (01) ==
LOC: M ED 10:31
DX: T23.201A Burn of second degree of right hand, unspecified site, initial encounter (principal); T25.122A Burn of first degree of left foot, initial encounter; T31.0 Burns involving less than 10% of body surface; Y26.XXXA Exposure to smoke, fire and flames, undetermined intent, initial encounter; Y92.9 Unspecified place or not applicable; Y93.9 Activity, unspecified; Y99.9 Unspecified external cause status; I25.10 Atherosclerotic heart disease of native coronary artery without angina pectoris; I25.2 Old myocardial infarction; I10 Essential (primary) hypertension; Z88.0 Allergy status to penicillin; Z88.2 Allergy status to sulfonamides; Z88.6 Allergy status to analgesic agent; Z79.899 Other long term (current) drug therapy

== ENCOUNTER 2021-07-05 09:35 | Emergency (ER) | payer OTHER ==
[~2021-07-05] VITALS: Ht 182.9 cm; Wt 136.9 kg
[~2021-07-05 09:35] MED LIST changes: +BACI500O21 TOP
[2021-07-05] MEDS ORDERED: DIVA250T67 (10:00)
[2021-07-05] MEDS ORDERED: METH-1165 (10:00)
[2021-07-05] MEDS ORDERED: NS 500 ML IV ONE (10:40)
[2021-07-05 10:56] LABS: BASO % 0.5 % (0.0-1.0); EOS # 0.1 10^3/uL (0.0-0.5); EOS % 0.7 % (0.0-3.0); HEMATOCRIT 44.6 % (42.0-52.0); HEMOGLOBIN 15.6 g/dl (13.5-17.5); LYMPH # 1.6 10^3/uL (1.5-5.0); LYMPH % 20.9 % (24.0-44.0); MEAN CORPUSCULAR HEMOGLOBIN 30.2 pg (27.0-33.0); MEAN CORPUSCULAR VOLUME 86.3 fl (80.0-96.0); MONO # 0.9 10^3/uL (0.0-0.8); MONO % 12.2 % (2.0-8.0); NEUTROPHILS % 65.4 % (36.0-66.0); PLATELET COUNT, AUTOMATED 233 10^3/uL (150-450); RED BLOOD COUNT 5.17 10^6/uL (4.30-6.10); WHITE BLOOD COUNT 7.6 10^3/uL (4.0-10.0)
[2021-07-05] MEDS ORDERED: diazePAM 5MG TABLET PO ONE (11:10)
[2021-07-05] MEDS ORDERED: ACETAMINOPHEN 500 MG TAB PO ONE (11:10)
[2021-07-05 11:30] LABS: ALBUMIN 3.5 GM/DL (3.2-5.2); BILIRUBIN,DIRECT 0.2 MG/DL (0.0-0.2); BILIRUBIN,TOTAL 0.9 MG/DL (0.2-1.0)
[2021-07-05] MEDS ORDERED: VALI5TAB PO (12:29)
[2021-07-05 12:49] VITALS: BP 172/89
== END 2021-07-05 12:51 | disposition home or self-care (01) ==
LOC: M ED 09:35
DX: S29.012A Strain of muscle and tendon of back wall of thorax, initial encounter (principal); X50.0XXA Overexertion from strenuous movement or load, initial encounter; Y92.89 Other specified places as the place of occurrence of the external cause; Y93.H2 Activity, gardening and landscaping; Y99.8 Other external cause status; I25.2 Old myocardial infarction; I10 Essential (primary) hypertension; E78.5 Hyperlipidemia, unspecified; G47.33 Obstructive sleep apnea (adult) (pediatric); Z79.01 Long term (current) use of anticoagulants; Z79.899 Other long term (current) drug therapy; Z88.0 Allergy status to penicillin; Z88.2 Allergy status to sulfonamides; Z88.8 Allergy status to other drugs, medicaments and biological substances; Z88.5 Allergy status to narcotic agent; Z86.73 Personal history of transient ischemic attack (TIA), and cerebral infarction without residual deficits; Z87.442 Personal history of urinary calculi; Z95.1 Presence of aortocoronary bypass graft; Z98.890 Other specified postprocedural states

== ENCOUNTER → 2022-05-07 | Outpatient (CLI) | payer OTHER ==
[~2022-05-07] MED LIST changes: +DIVA250T67; +METH-1165; +VALI5TAB PO
== END ==
LOC: M LABSMTC 09:24
PROVIDERS: ATTEND Anesthesiology
DX: Z01.812 Encounter for preprocedural laboratory examination (principal); Z11.52 Encounter for screening for COVID-19

== ENCOUNTER 2022-05-09 11:06 | Day surgery (SDC) | payer OTHER ==
[~2022-05-09] VITALS: Ht 177.8 cm; Wt 137.0 kg
[~2022-05-09 11:06] MED LIST changes: +NS 1,000 ML IV ONE
[2022-05-09] MEDS ORDERED: propofoL 200 MG/20 ML VIAL As Ordered ONE (13:20)
[2022-05-09 13:35] VITALS: BP 177/99
== END 2022-05-09 13:43 | disposition home or self-care (01) ==
LOC: M OPP 11:06
PROVIDERS: ATTEND Surgery
DX: Z12.11 Encounter for screening for malignant neoplasm of colon (principal); K63.5 Polyp of colon; Z95.5 Presence of coronary angioplasty implant and graft; Z86.74 Personal history of sudden cardiac arrest; Z86.73 Personal history of transient ischemic attack (TIA), and cerebral infarction without residual deficits; Z79.02 Long term (current) use of antithrombotics/antiplatelets; Z79.1 Long term (current) use of non-steroidal anti-inflammatories (NSAID); Z79.899 Other long term (current) drug therapy; Z88.5 Allergy status to narcotic agent; Z88.6 Allergy status to analgesic agent; Z88.0 Allergy status to penicillin; Z88.2 Allergy status to sulfonamides; Z88.8 Allergy status to other drugs, medicaments and biological substances

== ENCOUNTER 2022-05-19 18:46 | Emergency (ER) | payer OTHER ==
[~2022-05-19] VITALS: Ht 180.3 cm; Wt 143.2 kg
[~2022-05-19 18:46] MED LIST changes: -NS 1,000 ML IV ONE
[2022-05-19] MEDS ORDERED: NITROGLYCERIN 0.4 MG SUBL TABLET SL PRN (19:50)
[2022-05-19 19:53] LABS: BASO % 0.2 % (0.0-1.0); EOS % 0.5 % (0.0-3.0); HEMATOCRIT 46.6 % (42.0-52.0); HEMOGLOBIN 16.6 g/dl (13.5-17.5); LYMPH # 0.5 10^3/uL (1.5-5.0); LYMPH % 6.5 % (24.0-44.0); MEAN CORPUSCULAR HEMOGLOBIN 30.7 pg (27.0-33.0); MEAN CORPUSCULAR HGB CONC 35.6 g/dl (32.0-36.5); MEAN CORPUSCULAR VOLUME 86.3 fl (80.0-96.0); MONO # 0.6 10^3/uL (0.0-0.8); MONO % 7.6 % (2.0-8.0); PLATELET COUNT, AUTOMATED 224 10^3/uL (150-450); WHITE BLOOD COUNT 8.3 10^3/uL (4.0-10.0)
[2022-05-19 20:08] LABS: ALBUMIN 3.6 GM/DL (3.2-5.2); BILIRUBIN,DIRECT 0.2 MG/DL (0.0-0.2); TOTAL PROTEIN 6.9 GM/DL (6.4-8.2)
[2022-05-19 20:10] LABS: CK-MB VALUE MASS < 1.0 NG/ML (<3.6); CPK CREATINE PHOSPHOKINASE 148 U/L (39-308); MB/CK RELATIVE INDEX 0.68 (< OR =4)
[2022-05-19] MEDS ORDERED: ACETAMINOPHEN TAB 650MG DOSE (2X325MG) PO ONE (20:50)
[2022-05-19] MEDS ORDERED: POTASSIUM CHLORIDE 10MEQ SR TABLET PO ONE (20:50)
[2022-05-19] MEDS ORDERED: ISOVUE-370 76% 100ML VIAL As Ordered ONE (21:07)
[2022-05-19] MEDS ORDERED: NS 1,000 ML IV ONE (21:35)
[2022-05-19 22:25] LABS: CK-MB VALUE MASS < 1.0 NG/ML (<3.6); CPK CREATINE PHOSPHOKINASE 132 U/L (39-308); MB/CK RELATIVE INDEX 0.76 (< OR =4)
[2022-05-20] MEDS ORDERED: KETOROLAC 30 MG/ML 1ML VIAL IV ONE (00:10)
[2022-05-20 00:30] VITALS: BP 147/65
[2022-05-20] MEDS ORDERED: HOME MED LIST COMPLETE! XX SCH (01:05)
[2022-05-20 01:49] LABS: RSV AMPLIFICATION NEGATIVE (NEGATIVE)
== END 2022-05-20 01:34 | disposition home or self-care (01) ==
LOC: EDBD 18:46 → M ED 18:46
DX: R07.9 Chest pain, unspecified (principal); M94.0 Chondrocostal junction syndrome [Tietze]; I10 Essential (primary) hypertension; E78.5 Hyperlipidemia, unspecified; Z86.79 Personal history of other diseases of the circulatory system; Z95.5 Presence of coronary angioplasty implant and graft; F10.10 Alcohol abuse, uncomplicated; Z88.0 Allergy status to penicillin; Z88.2 Allergy status to sulfonamides; Z88.5 Allergy status to narcotic agent; Z79.811 Long term (current) use of aromatase inhibitors; Z79.899 Other long term (current) drug therapy
CPT/HCPCS: 71045; 71275; 74177; 80047; 80076; 82550; 82553; 83605; 83690; 85025; 85379; 87631; 93005; 93041; 94760; 96360; 96361; 99285; Q9967

== ENCOUNTER → 2023-03-21 | Outpatient (CLI) | payer OTHER ==
[~2023-03-21] MED LIST changes: +CLOP75TA99 PO; -PLAV1TAB2 PO
[2023-03-21 17:08] LABS: BASO # 0.1 10^3/uL (0.0-0.2); BASO % 0.9 % (0.0-1.0); EOS # 0.1 10^3/uL (0.0-0.5); EOS % 0.9 % (0.0-3.0); HEMATOCRIT 46.8 % (42.0-52.0); HEMOGLOBIN 16.4 g/dl (13.5-17.5); LYMPH # 2.4 10^3/uL (1.5-5.0); LYMPH % 37.2 % (24.0-44.0); MEAN CORPUSCULAR HEMOGLOBIN 31.2 pg (27.0-33.0); MEAN CORPUSCULAR VOLUME 89.1 fl (80.0-96.0); MONO # 0.7 10^3/uL (0.0-0.8); MONO % 10.4 % (2.0-8.0); NEUTROPHILS # 3.3 10^3/uL (1.5-8.5); NEUTROPHILS % 50.3 % (36.0-66.0); PLATELET COUNT, AUTOMATED 250 10^3/uL (150-450); RED BLOOD COUNT 5.25 10^6/uL (4.30-6.10); WHITE BLOOD COUNT 6.5 10^3/uL (4.0-10.0)
[2023-03-21 17:36] LABS: ALBUMIN 3.9 G/DL (3.2-5.2); ALKALINE PHOSPHATASE 59 U/L (46-116); ALT/SGPT 51 U/L (7.0-40); AST/SGOT 23 U/L (<34); BLOOD UREA NITROGEN 21 MG/DL (9-23); CALCIUM LEVEL 9.3 MG/DL (8.5-10.1); CARBON DIOXIDE LEVEL 30 MMOL/L (20-31); CHLORIDE LEVEL 105 MMOL/L (98-107); GLOMERULAR FILTRATION RATE > 60.0 (>56); GLUCOSE, FASTING 86 MG/DL (60-100); SODIUM LEVEL 142 MMOL/L (136-145); TOTAL PROTEIN 6.9 G/DL (5.7-8.2)
[2023-03-21 17:38] LABS: FOLATE 16.85 NG/ML (>5.4); THYROID STIMULATING HORMONE 0.983 uIU/ML (0.55-4.78); VITAMIN B12 LEVEL 284 PG/ML (211-911)
[2023-03-21 17:39] LABS: FREE T4 1.23 NG/DL (0.89-1.76)
== END ==
LOC: M WUC 11:48
PROVIDERS: ATTEND Psychiatry & Neurology Neurology
DX: R53.83 Other fatigue (principal); G47.9 Sleep disorder, unspecified

== ENCOUNTER 2024-06-30 11:48 | Outpatient (CLI) | payer OTHER ==
[~2024-06-30] VITALS: Ht 177.8 cm; Wt 138.0 kg
[~2024-06-30 11:48] MED LIST changes: +ALBUTEROL SULFATE 2.5MG/0.5ML INH NEB SOLN INH PRN; +EPINEPHrine INJ 1 MG/ML 1ML AMP IM PRN; +NS 1,000 ML IV SCH; +ONDA-282 PO; -ONDA4TAB6 PO; +diphenhydrAMINE 50MG/ML VIAL IV PRN; +methylPREDNISolone 125MG 2ML VIAL IV PRN
[2024-06-30 12:00] VITALS: BP 143/3; O2SAT 98
[2024-06-30] MEDS: IRON SUCROSE 300 MG in NS 250 ML IV ONE (12:30)
[2024-06-30 14:10] VITALS: BP 130/73; O2SAT 99
== END 2024-06-30 14:10 ==
LOC: M INFU 11:48
PROVIDERS: ATTEND Internal Medicine Hematology
DX: D50.9 Iron deficiency anemia, unspecified (principal); Z88.0 Allergy status to penicillin; Z88.2 Allergy status to sulfonamides; Z88.5 Allergy status to narcotic agent; Z88.6 Allergy status to analgesic agent; Z88.8 Allergy status to other drugs, medicaments and biological substances
CPT/HCPCS: 96365; 96366; J1756

== ENCOUNTER → 2024-09-24 | Outpatient (CLI) | payer OTHER ==
[~2024-09-24] MED LIST changes: -ALBUTEROL SULFATE 2.5MG/0.5ML INH NEB SOLN INH PRN; -EPINEPHrine INJ 1 MG/ML 1ML AMP IM PRN; -NS 1,000 ML IV SCH; -diphenhydrAMINE 50MG/ML VIAL IV PRN; -methylPREDNISolone 125MG 2ML VIAL IV PRN
[2024-09-24 13:26] LABS: HEMATOCRIT 47.6 % (42.0-52.0); HEMOGLOBIN 16.7 g/dl (13.5-17.5); MEAN CORPUSCULAR HGB CONC 35.1 g/dl (32.0-36.5); MEAN CORPUSCULAR VOLUME 88.5 fl (80.0-96.0); PLATELET COUNT, AUTOMATED 254 10^3/uL (150-450); RED BLOOD COUNT 5.38 10^6/uL (4.30-6.10); WHITE BLOOD COUNT 5.3 10^3/uL (4.0-10.0)
[2024-09-24 13:27] LABS: ALBUMIN 3.9 G/DL (3.2-5.2); ALKALINE PHOSPHATASE 72 U/L (40-129); ALT/SGPT 35 U/L (7.0-40); AST/SGOT 15 U/L (<34); BILIRUBIN,DIRECT 0.4 MG/DL (<0.4); BILIRUBIN,TOTAL 0.9 MG/DL (0.3-1.2); BLOOD UREA NITROGEN 20 MG/DL (9-23); CALCIUM LEVEL 9.8 MG/DL (8.5-10.1); CARBON DIOXIDE LEVEL 30 MMOL/L (20-31); CHLORIDE LEVEL 103 MMOL/L (98-107); CHOLESTEROL LEVEL 129 MG/DL (<200); CHOLESTEROL RISK RATIO 3.47 (<5); CREATININE FOR GFR 0.92 MG/DL (0.70-1.30); GLOMERULAR FILTRATION RATE > 60.0 (>56); GLUCOSE, FASTING 107 MG/DL (60-100); HDL CHOLESTEROL 37.1 MG/DL (>40); LDL CHOLESTEROL 73.3 MG/DL (<100); NON-HDL-C 91.9 MG/DL; POTASSIUM SERUM 3.9 MMOL/L (3.5-5.1); SODIUM LEVEL 141 MMOL/L (136-145); TOTAL PROTEIN 7.3 G/DL (5.7-8.2); TRIGLYCERIDES LEVEL 93 MG/DL (<150)
[2024-09-24 14:19] LABS: HEMOGLOBIN A1c 5.4 % (4.0-6.0)
== END ==
LOC: M WUC 09:18
PROVIDERS: ATTEND Student in an Organized Health Care Education/Training Program
DX: Z00.00 Encounter for general adult medical examination without abnormal findings (principal)

== ENCOUNTER → 2024-10-15 | Outpatient (CLI) | payer OTHER | LOC: M WUC 09:14 | PROVIDERS: ATTEND Student in an Organized Health Care Education/Training Program | DX: R22.41 Localized swelling, mass and lump, right lower limb (principal); M11.261 Other chondrocalcinosis, right knee ==

== ENCOUNTER → 2024-11-10 | Outpatient (CLI) | payer OTHER | LOC: M CARPUL 09:50 | PROVIDERS: ATTEND Physician Assistant | DX: I34.0 Nonrheumatic mitral (valve) insufficiency (principal); I77.810 Thoracic aortic ectasia ==

== ENCOUNTER → 2024-12-29 | Outpatient (CLI) | payer OTHER ==
[~2024-12-29] MED LIST changes: +ISOVUE-300 61% 100ML VIAL As Ordered ONE; +LIDOCAINE 1% MDV 20ML VIAL As Ordered ONE; +methylPREDNISolone 80MG/ML SUSP 1ML VIAL As Ordered ONE
== END ==
LOC: M RAD 14:00
PROVIDERS: ATTEND Orthopaedic Surgery
DX: M25.552 Pain in left hip (principal)
CPT/HCPCS: 20610; 77002; J0665; J1010; Q9967

== ENCOUNTER → 2025-01-17 | Outpatient (CLI) | payer OTHER ==
[~2025-01-17] MED LIST changes: -ISOVUE-300 61% 100ML VIAL As Ordered ONE; -LIDOCAINE 1% MDV 20ML VIAL As Ordered ONE; -methylPREDNISolone 80MG/ML SUSP 1ML VIAL As Ordered ONE
[2025-01-17 15:12] LABS: BASO # 0.1 10^3/uL (0.0-0.2); BASO % 0.8 % (0.0-1.0); EOS # 0.1 10^3/uL (0.0-0.5); EOS % 2.1 % (0.0-3.0); HEMATOCRIT 47.1 % (42.0-52.0); HEMOGLOBIN 16.4 g/dl (13.5-17.5); LYMPH # 2.1 10^3/uL (1.5-5.0); LYMPH % 33.8 % (24.0-44.0); MEAN CORPUSCULAR HEMOGLOBIN 31.6 pg (27.0-33.0); MEAN CORPUSCULAR HGB CONC 34.8 g/dl (32.0-36.5); MEAN CORPUSCULAR VOLUME 90.8 fl (80.0-96.0); MONO # 0.8 10^3/uL (0.0-0.8); MONO % 12.6 % (2.0-8.0); NEUTROPHILS # 3.1 10^3/uL (1.5-8.5); NEUTROPHILS % 50.5 % (36.0-66.0); PLATELET COUNT, AUTOMATED 248 10^3/uL (150-450); RED BLOOD COUNT 5.19 10^6/uL (4.30-6.10); WHITE BLOOD COUNT 6.2 10^3/uL (4.0-10.0)
[2025-01-17 15:22] LABS: HEMOGLOBIN A1c 5.2 % (4.0-6.0)
[2025-01-17 15:34] LABS: ALBUMIN 3.8 G/DL (3.2-5.2); ALKALINE PHOSPHATASE 74 U/L (40-129); ALT/SGPT 54 U/L (7.0-40); AST/SGOT 21 U/L (<34); BILIRUBIN,DIRECT 0.2 MG/DL (<0.4); BILIRUBIN,TOTAL 0.7 MG/DL (0.3-1.2); BLOOD UREA NITROGEN 14 MG/DL (9-23); CALCIUM LEVEL 9.2 MG/DL (8.5-10.1); CARBON DIOXIDE LEVEL 31 MMOL/L (20-31); CHLORIDE LEVEL 105 MMOL/L (98-107); CHOLESTEROL LEVEL 131 MG/DL (<200); CHOLESTEROL RISK RATIO 3.27 (<5); CREATININE FOR GFR 0.85 MG/DL (0.70-1.30); GLOMERULAR FILTRATION RATE > 60.0 (>56); GLUCOSE, FASTING 95 MG/DL (60-100); LDL CHOLESTEROL 44.8 MG/DL (<100); PHOSPHORUS LEVEL 2.6 MG/DL (2.5-4.9); POTASSIUM SERUM 3.8 MMOL/L (3.5-5.1); SODIUM LEVEL 143 MMOL/L (136-145); TOTAL PROTEIN 6.9 G/DL (5.7-8.2); TRIGLYCERIDES LEVEL 231 MG/DL (<150)
== END ==
LOC: M WUC 11:29
PROVIDERS: ATTEND Student in an Organized Health Care Education/Training Program
DX: Z00.00 Encounter for general adult medical examination without abnormal findings (principal)